=== PATIENT | male | born 1975 | race Caucasian/White ===

== ENCOUNTER 2017-09-03 07:08 | Outpatient (CLI) | payer OTHER | END 2017-09-03 19:52 | disposition home or self-care (01) | LOC: SMI 07:08 → EEVIPCON 07:08 → SMI 19:52 | PROVIDERS: ATTEND Psychiatry & Neurology Neurology | DX: R56.9 Unspecified convulsions (principal); R53.1 Weakness | CPT/HCPCS: 70551 ==